=== PATIENT | female | born 1990 | race Caucasian/White ===

== ENCOUNTER 2018-06-24 15:17 | Emergency (ER) | payer OTHER ==
[2018-06-24] MEDS ORDERED: ONDANSETRON 4 MG TAB.RAPDIS PO ONE (15:50)
[2018-06-24] MEDS ORDERED: NORMAL SALINE 1000 ML 1,000 ML IV ONE (15:50)
[2018-06-24] MEDS ORDERED: NORMAL SALINE 1000 ML 1,000 ML IV PRN (15:50)
--- NOTE | 2018-06-24 15:55 | ER Document Report ---
ED Medical Screen (RME) - General Chief Complaint: Nausea/Vomiting Stated Complaint: VAGINAL BLEEDING Time Seen by Provider: 06/24/18 15:40 Notes: 28 years old female this is her third , 14 weeks, presents today with spotting yesterday, today general malaise feverish nauseous and vomiting. Possibly dehydrated. Sent over by the OB Appears to be slightly dehydrated. TRAVEL OUTSIDE OF THE [place] IN LAST 30 DAYS: No - Related Data Allergies/Adverse Reactions: pineapple Allergy (Verified 06/24/18 15:21) Past Medical History - Social History Chew tobacco use (# tins/day): No Frequency of alcohol use: Occasional Neurological Medical History: Reports: Hx Migraine Renal/ Medical History: Denies: Hx Peritoneal Dialysis Past Surgical History: Reports: Hx Section, Hx Orthopedic Surgery Physical Exam - Vital signs Vitals: Temp Pulse Resp BP Pulse Ox 97.9 F 80 18 113/78 100 06/24/18 15:34 06/24/18 15:34 06/24/18 15:34 06/24/18 15:34 06/24/18 15:34 Course - Vital Signs Vital signs: Temp Pulse Resp BP Pulse Ox 97.9 F 80 18 113/78 100 06/24/18 15:34 06/24/18 15:34 06/24/18 15:34 06/24/18 15:34 06/24/18 15:34
[2018-06-24 16:30] LABS: ABSOLUTE EOSINOPHILS # (AUTO) 0.1 10^3/uL (0.0-0.6); ABSOLUTE LYMPHOCYTES (AUTO) 1.9 10^3/uL (0.5-4.7); ABSOLUTE MONOCYTES (AUTO) 0.6 10^3/uL (0.1-1.4); ABSOLUTE NEUT (AUTO) 9.7 10^3/uL (1.7-8.2); BASOPHILS % (AUTO) 0.3 % (0-2); EOSINOPHILS % (AUTO) 0.6 % (0-6); HEMATOCRIT 41.9 % (36.0-47.0); HEMOGLOBIN 14.3 g/dL (12.0-15.5); LYMPHOCYTES % (AUTO) 15.2 % (13-45); MEAN CORPUSCULAR HEMOGLOBIN 30.6 pg (27.0-33.4); MEAN CORPUSCULAR HGB CONC 34.1 g/dL (32.0-36.0); MEAN CORPUSCULAR VOLUME 90 fl (80-97); PLATELET COUNT 251 10^3/uL (150-450); RED BLOOD COUNT 4.67 10^6/uL (3.72-5.28); RED CELL DISTRIBUTION WIDTH 13.2 % (11.5-14.0); SEGMENTED NEUTROPHILS % (AUTO) 78.9 % (42-78); TOTAL CELLS COUNTED % (AUTO) 100 %; WHITE BLOOD COUNT 12.3 10^3/uL (4.0-10.5)
[2018-06-24 16:34] LABS: APPEARANCE,URINE CLOUDY; BILIRUBIN,URINE NEGATIVE (NEGATIVE); COLOR,URINE YELLOW; GLUCOSE, URINE NEGATIVE (NEGATIVE); KETONES,URINE 80 mg/dL (NEGATIVE); LEUKOCYTE ESTERASE,URINE NEGATIVE (NEGATIVE); NITRITE,URINE NEGATIVE (NEGATIVE); PROTEIN,URINE NEGATIVE (NEGATIVE); URINE SPECIFIC GRAVITY 1.024; UROBILINOGEN,URINE NEGATIVE mg/dL (<2.0)
[2018-06-24 16:47] LABS: ALANINE AMINOTRANSFERASE 15 U/L (9-52); ALBUMIN 4.2 g/dL (3.5-5.0); ALKALINE PHOSPHATASE 44 U/L (38-126); ANION GAP 11 (5-19); ASPARTATE AMINO TRANSFERASE 24 U/L (14-36); BILIRUBIN,DIRECT 0.1 mg/dL (0.0-0.4); BILIRUBIN,TOTAL 0.6 mg/dL (0.2-1.3); BLOOD UREA NITROGEN 10 mg/dL (7-20); CARBON DIOXIDE 25 mmol/L (22-30); CHLORIDE 102 mmol/L (98-107); GLUCOSE 87 mg/dL (75-110); POTASSIUM 4.3 mmol/L (3.6-5.0); SODIUM 137.5 mmol/L (137-145); TOTAL PROTEIN 7.1 g/dL (6.3-8.2)
--- NOTE | 2018-06-24 18:00 | ER Document Report ---
HPI - HPI Patient complains to provider of: Nausea and vomiting Onset: Other - 3 days Onset/Duration: Persistent Quality of pain: Achy Pain Level: 2 Context: Patient presents complaining of nausea and vomiting for the past 3 days. Patient denies any diarrhea. Patient reports cough and generalized body aches. Patient states that she is currently 14 weeks . Patient states that she started to have vaginal spotting yesterday that has since resolved. Patient did go see her [employer]NAGER prior to arrival here and had an ultrasound performed. Patient states that the baby is doing fine but was advised to come here for IV fluids. Patient does take B6 and Unisom for her nausea symptoms. Associated Symptoms: Body/muscle aches, Nonproductive cough. denies: Fever, Sore throat Exacerbated by: Denies Relieved by: Denies Similar symptoms previously: No Recently seen / treated by doctor: Yes - ROS ROS below otherwise negative: Yes Systems Reviewed and Negative: Yes All other systems reviewed and negative - CONSTITUTIONAL Constitutional: DENIES: Fever - EENT EENT: REPORTS: Nasal Drainage-Clear, Congestion - RESPIRATORY Respiratory: REPORTS: Coughing - GASTROINTESTINAL Gastrointestinal: REPORTS: Nausea, Patient vomiting. DENIES: Abdominal Pain, Diarrhea - REPRODUCTIVE Reproductive: REPORTS: Abnormal bleeding / discharge - MUSCULOSKELETAL Musculoskeletal: DENIES: Back Pain - DERM Skin Color: Normal Skin Problems: None Past Medical History - General Information source: Patient - Social History Smoking Status: Former Smoker Chew tobacco use (# tins/day): No Frequency of alcohol use: Occasional Drug Abuse: None Lives with: Family Family History: Reviewed & Not Pertinent Patient has suicidal ideation: No Patient has homicidal ideation: No Neurological Medical History: Reports: Hx Migraine Renal/ Medical History: Denies: Hx Peritoneal Dialysis Past Surgical History: Reports: Hx Section, Hx Orthopedic Surgery Vertical Provider Document - CONSTITUTIONAL Agree With Documented VS: Yes Exam Limitations: No Limitations General Appearance: WD/WN, No Apparent Distress - INFECTION CONTROL TRAVEL OUTSIDE OF THE [place] IN LAST 30 DAYS: No - HEENT HEENT: Atraumatic, Normocephalic. negative: Pharyngeal Exudate, Pharyngeal Tenderness, Tympanic Membrane Red, Tympanic Membrane Bulging Notes: Clear rhinorrhea - NECK Neck: Normal Inspection, Supple. negative: Lymphadenopathy-Left, Lymphadenopathy-Right - RESPIRATORY Respiratory: Breath Sounds Normal, No Respiratory Distress, Chest Non-Tender - CARDIOVASCULAR Cardiovascular: Regular Rate, Regular Rhythm, No Murmur - GI/ABDOMEN Gastrointestinal: Abdomen Soft, Abdomen Non-Tender, No Organomegaly - BACK Back: Normal Inspection. negative: CVA Tenderness-Right, CVA Tenderness-Left - MUSCULOSKELETAL/EXTREMETIES Musculoskeletal/Extremeties: AD FROM - NEURO Level of Consciousness: Awake, Alert, Appropriate Motor/Sensory: No Motor Deficit - DERM Integumentary: Warm, Dry, No Rash Course - Re-evaluation Re-evalutation: 06/24/18 17:57 Patient tolerating oral fluids without emesis. Patient states she is feeling much better. Patient's abdomen soft, no guarding. Patient states that she is ready to be discharged at this time. - Vital Signs Vital signs: Temp Pulse Resp BP Pulse Ox 97.9 F 80 18 113/78 100 06/24/18 15:34 06/24/18 15:34 06/24/18 15:34 06/24/18 15:34 06/24/18 15:34 - Laboratory Result Diagrams: 06/24/18 16:00 06/24/18 16:00 Laboratory results interpreted by me: 06/24/18 06/24/18 06/24/18 16:00 16:00 16:00 WBC 12.3 H Seg Neutrophils % 78.9 H Absolute Neutrophils 9.7 H Beta HCG, Quant 945855.00 H Urine Ketones 80 H Urine Ascorbic Acid 40 H 06/24/18 17:57 Labs- Entire Visit 06/24/18 06/24/18 06/24/18 16:00 16:00 16:00 WBC 12.3 H RBC 4.67 Hgb 14.3 Hct 41.9 MCV 90 MCH 30.6 MCHC 34.1 RDW 13.2 Plt Count 251 Seg Neutrophils % 78.9 H Lymphocytes % 15.2 Monocytes % 5.0 Eosinophils % 0.6 Basophils % 0.3 Absolute Neutrophils 9.7 H Absolute Lymphocytes 1.9 Absolute Monocytes 0.6 Absolute Eosinophils 0.1 Absolute Basophils 0.0 Sodium 137.5 Potassium 4.3 Chloride 102 Carbon Dioxide 25 Anion Gap 11 BUN 10 Creatinine 0.53 Est GFR ( Amer) > 60 Est GFR (Non-Af Amer) > 60 Glucose 87 Calcium 10.0 Total Bilirubin 0.6 Direct Bilirubin 0.1 Neonat Total Bilirubin Not Reportable Neonat Direct Bilirubin Not Reportable Neonat Indirect Bili Not Reportable AST 24 ALT 15 Alkaline Phosphatase 44 Total Protein 7.1 Albumin 4.2 Beta HCG, Quant 360039.00 H Total Beta HCG POSITIVE Urine Color YELLOW Urine Appearance CLOUDY Urine pH 6.[address] 1.024 Urine Protein NEGATIVE Urine Glucose (UA) NEGATIVE Urine Ketones 80 H Urine Blood NEGATIVE Urine Nitrite NEGATIVE Urine Bilirubin NEGATIVE Urine Urobilinogen NEGATIVE Ur Leukocyte Esterase NEGATIVE Urine WBC (Auto) 2 Urine RBC (Auto) 4 Urine Bacteria (Auto) TRACE Squamous Epi Cells Auto 27 Urine Mucus (Auto) FEW Urine Ascorbic Acid 40 H Discharge - Discharge Clinical Impression: Nausea and vomiting during Upper respiratory infection Qualifiers: URI type: unspecified URI Qualified Code(s): J06.9 - Acute upper respiratory infection, unspecified Condition: Stable Disposition: HOME, SELF-CARE Instructions: Acetaminophen, Intravenous (IV) Fluids ([facility]), Nausea or Vomiting , Nonspecific ([facility]), Upper Respiratory Illness ([facility]) Additional Instructions: Return immediately for any new or worsening symptoms Followup with your primary care provider, call tomorrow to make a followup appointment You may take Benadryl [id number] to help with your nausea symptoms Prescriptions: Metoclopramide HCl [Reglan 10 mg Tablet] 10 mg PO Q8 PRN #12 tablet PRN Reason: Referrals: CAROLINA OBREGON MD [Primary Care Provider] - Follow up tomorrow
[2018-06-24 18:21] VITALS: BP 100/55
== END 2018-06-24 18:21 | disposition home or self-care (01) ==
LOC: ER 15:17
DX: O26.92 Pregnancy related conditions, unspecified, second trimester (principal); J06.9 Acute upper respiratory infection, unspecified; R11.2 Nausea with vomiting, unspecified; M79.10 Myalgia, unspecified site; Z3A.14 14 weeks gestation of pregnancy
CPT/HCPCS: 99284; 96360; 96361; 36415; 84702; 85025; 80053; 81001; S0119; J7030